=== PATIENT | female | born 1955 | race Caucasian/White ===

== ENCOUNTER 2022-11-28 08:23 | Outpatient (CLI) | payer MEDICARE, SELFPAY ==
[2022-11-28 18:48] LABS: Anion Gap 8 mmol/L (8-16); Blood Urea Nitrogen 16 mg/dL (7-17); Calcium 8.9 mg/dL (8.4-10.2); Carbon Dioxide 26 mmol/L (22-30); Chloride 106 mmol/L (98-107); Estimated Glomerular Filt Rate > 60; Glucose 108 mg/dL (65-110); Potassium 4.3 mmol/L (3.4-5.0); Sodium 140 mmol/L (137-145)
== END 2022-11-28 08:24 | disposition home or self-care (01) ==
DX: Q61.5 Medullary cystic kidney (principal)
CPT/HCPCS: 36415; 80048